=== PATIENT | female | born 1960 | race Asian ===

== ENCOUNTER 2016-12-04 21:59 | Emergency (ER) | payer BC ==
[~2016-12-04] VITALS: Ht 157.5 cm; Wt 52.2 kg
[2016-12-04 22:08] VITALS: BP_SYST 133
[2016-12-04 23:00] VITALS: BP_SYST 108
== END 2016-12-04 23:00 | disposition home or self-care (01) ==
LOC: EDBD 21:59 → SED 21:59
DX: F41.9 Anxiety disorder, unspecified (principal)
CPT/HCPCS: 99284

== ENCOUNTER 2018-04-24 01:17 | Emergency (ER) | payer BC ==
[~2018-04-24] VITALS: Ht 157.5 cm; Wt 47.2 kg
[2018-04-24 01:21] VITALS: BP_SYST 129
[2018-04-24] MEDS ORDERED: LIDOCAINE VISCOUS 2%, 15 ML UDC MM ONE (01:45)
[2018-04-24] MEDS ORDERED: MAG-AL HYDROX/SIMETH 30 ML UDC PO ONE (01:45)
[2018-04-24] MEDS ORDERED: BELLADONNA ALKALOIDS/PHENOBARB 5 ML UDC PO ONE (01:45)
[2018-04-24] MEDS ORDERED: NACL 0.9% 1,000 ML IV ONE (01:45)
[2018-04-24 02:10] LABS: EOSINOPHILS % (AUTO) 1.6 % (0.0-4.0); HEMATOCRIT 35.1 % (36-48); MEAN CORPUSCULAR HEMOGLOBIN 22 pg (27-31); MEAN CORPUSCULAR HGB CONC 31 % (32-36); MEAN CORPUSCULAR VOLUME 69 fL (79.0-98.0); MONOCYTES % (AUTO) 7.1 % (1.7-9.3); NEUTROPHILS % (AUTO) 58.9 % (40.0-70.0); PLATELET COUNT (AUTO) 177 K/uL (130-430); RED BLOOD CELL COUNT(AUTO) 5.07 MIL/uL (4.2-6.2); RED CELL DISTRIBUTION WIDTH 14.9 % (9.0-15.0); WHITE BLOOD COUNT (AUTO) 3.9 K/uL (4.8-10.8)
[2018-04-24 02:11] LABS: BASOPHILS % (AUTO) 0.4 % (0.0-2.0); EOSINOPHILS # (AUTO) 0.1 K/uL (0.0-0.4); LYMPHOCYTES # (AUTO) 1.2 K/uL (1.0-5.5); MONOCYTES # (AUTO) 0.3 K/uL (0.0-1.0); NEUTROPHILS # (AUTO) 2.3 K/uL (1.8-7.7)
[2018-04-24 02:20] LABS: CALCIUM 8.4 mg/dL (8.4-11.0); CREATININE 0.53 mg/dL (0.55-1.30); POTASSIUM 3.1 mmol/L (3.5-5.1)
[2018-04-24 02:23] LABS: PROTHROMBIN TIME 10.4 SECS (9.5-12.5)
[2018-04-24 02:34] LABS: TOTAL BILIRUBIN 0.4 mg/dL (0.0-1.0)
[2018-04-24 02:59] LABS: BILIRUBIN,URINE NEGATIVE (NEGATIVE); CLARITY/URINE CLEAR (CLEAR); COLOR,URINE YELLOW (YELLOW); GLUCOSE,URINE NEGATIVE (NEGATIVE); KETONES,URINE 2+ (NEGATIVE); LEUKOCYTE ESTERASE ,URINE NEGATIVE (NEGATIVE); NITRITE, URINE NEGATIVE (NEGATIVE); PROTEIN URINE NEGATIVE (NEGATIVE); UROBILINOGEN,URINE 0.2 (0.2-1.0)
[2018-04-24] MEDS ORDERED: POTASSIUM CHLORIDE 20 MEQ TAB.PRT.SR PO ONE (03:00)
[2018-04-24] MEDS ORDERED: PANTOPRAZOLE SODIUM 40 MG/VIAL (PROTONIX) IVP ONE (03:15)
[2018-04-24 03:58] LABS: BLOOD, URINE TRACE (NEGATIVE)
[2018-04-24 03:59] LABS: BACTERIA,URINE FEW /HPF (None Seen); WBC,URINE 0-3 /HPF (0-3)
[2018-04-24 04:35] VITALS: BP_SYST 116
== END 2018-04-24 04:35 | disposition home or self-care (01) ==
LOC: SED 01:17
DX: K29.60 Other gastritis without bleeding (principal); F41.9 Anxiety disorder, unspecified; R03.0 Elevated blood-pressure reading, without diagnosis of hypertension
CPT/HCPCS: 36415; 71045; 74176; 80053; 81000; 83605; 84484; 85025; 85610; 85730; 87040; 87086; 93005; 96374; 99284; C9113; J2001

== ENCOUNTER 2018-11-18 20:52 | Emergency (ER) | payer BC ==
[~2018-11-18] VITALS: Ht 152.4 cm; Wt 47.6 kg
[2018-11-18 20:58] VITALS: BP_SYST 144
[2018-11-19] MEDS: LORazepam 1 MG TABLET PO ONE (02:40)
[2018-11-19 03:12] VITALS: BP_SYST 130
== END 2018-11-19 03:12 | disposition home or self-care (01) ==
LOC: SED 20:52
DX: G44.209 Tension-type headache, unspecified, not intractable (principal); R20.2 Paresthesia of skin; F41.9 Anxiety disorder, unspecified
CPT/HCPCS: 70450-TC; 82962; 93005; 99284